=== PATIENT | female | born 2000 | race Caucasian/White ===

== ENCOUNTER → 2022-06-16 22:47 | Observation (INO) ==
[2022-06-16 22:19] LABS: Protein/Creatinine Ratio,Urine 0.64 mg/mg (0.00-0.20)
== END | disposition home or self-care (01) ==
LOC: 1NENULAB
PROVIDERS: ADMIT Obstetrics & Gynecology; ATTEND Obstetrics & Gynecology

== ENCOUNTER 2022-06-17 19:27 | Inpatient (IN) ==
[~2022-06-17 19:27] MED LIST: *HR* Nalbuphine 10 MG/ML AMPUL IV PRN; Azithromycin 500 MG in 0.9 % Sodium Chloride 250 ML IVPB PRN; Famotidine 20 MG/2 ML VIAL IVP PRN; Lidocaine 1% 20 ML MDV INFILT PRN; Metoclopramide 10 MG/2 ML VIAL IVP PRN; Naloxone 0.4 MG/ML INJ IVP PRN; Ondansetron 4 MG/2 ML VIAL IVP PRN
[2022-06-17] MEDS ORDERED: miSOPROStoL 25 MCG TABLET PO PRN (19:30)
[2022-06-17] MEDS ORDERED: Oxytocin 30 UNIT/503 ML BAG IVC SCH (19:30)
[2022-06-17 19:44] LABS: Candida DNA DETECTED (Not Detect); Gardnerella DNA DETECTED (Not Detect); Trichomonas DNA Not Detected (Not Detect)
[2022-06-17] MEDS ORDERED: Fluconazole 150 MG TABLET PO ONE (19:52)
[2022-06-17 20:40] LABS: Basophils # 0.1 K/mcL (0.0-0.2); Basophils % 0.6 %; Eosinophils # 0.2 K/mcL (0.0-0.6); Eosinophils % 1.7 %; Hematocrit 30.1 % (35.3-44.9); Hemoglobin 9.5 g/dL (11.5-15.4); Immature Granulocytes % 1.1 % (0-4); Lymphocytes # 3.4 K/mcL (0.6-4.6); Lymphocytes % 26.8 %; Mean Corpuscular HGB Conc 31.6 g/dL (31.6-35.5); Mean Corpuscular Hemoglobin 24.5 pg (28.0-33.3); Mean Corpuscular Volume 77.6 fL (83.0-100.0); Mean Platelet Volume 10.9 fL (9.4-12.4); Monocytes # 0.6 K/mcL (0.0-1.3); Monocytes % 4.5 %; Neutrophils # 8.3 K/mcL (1.6-8.9); Platelet Count 218 K/mcL (140-400); Red Blood Count 3.88 M/mcL (3.82-4.97); Red Cell Distribution Width 14.8 % (11.5-14.5); Segmented Neutrophils % 65.3 %; White Blood Count 12.7 K/mcL (4.3-11.1)
[2022-06-17] MEDS ORDERED: Famotidine 20 MG/2 ML VIAL IVP ONE (20:48)
[2022-06-17 20:49] LABS: Amphetamine Screen,Urine Negative ng/mL (Cutoff=1000); Barbiturate Screen,Urine Negative ng/mL (Cutoff=200); Benzodiazepines Screen,Urine Negative ng/mL (Cutoff=200); Cannabinoid Screen,Urine Negative ng/mL (Cutoff = 50); Cocaine Screen,Urine Negative ng/mL (Cutoff= 300); Creatinine,Urine 34 mg/dL; Opiate Screen,Urine Negative ng/mL (Cutoff=300); Phencyclidine Screen,Urine Negative ng/mL (Cutoff=25); Protein/Creatinine Ratio,Urine 0.56 mg/mg (0.00-0.20)
[2022-06-17 21:00] LABS: Alanine Aminotransferase 18 Units/L (7-52); Aspartate Amino Transferase 17 Units/L (13-39); BUN/Creatinine Ratio 11 (6-26); Blood Urea Nitrogen 10 mg/dL (6-20); Lactate Dehydrogenase 180 Units/L (140-271); Uric Acid 5.1 mg/dL (2.3-7.6)
[2022-06-17] MEDS ORDERED: metroNIDAZOLE 500 MG TABLET PO SCH (21:00)
[2022-06-17 21:25] LABS: Bilirubin,Urine Negative (Negative); Blood,Urine Trace (Negative); Clarity,Urine Cloudy (Clear); Color,Urine Light-Yellow (Yellow); Glucose,Urine (UA) Normal (Normal); Ketones,Urine Negative (Negative); PH,Urine 6.5 pH Units (5.0-8.0); Specific Gravity,Urine 1.007 (1.010-1.025)
[2022-06-17 21:26] LABS: Leukocyte Esterase,Urine Large (Negative); Nitrite,Urine Negative (Negative); Protein,Urine Trace mg/dL (Neg-Trace); Urobilinogen,Urine Normal (Normal)
[2022-06-17 21:27] LABS: Bacteria,Urine Few per hpf (None-Few); RBC,Urine 15-30 per hpf (0-3); Squamous Epithelial Cell,Urine Few per hpf (None-Few); WBC,Urine 50-100 per hpf (0-3)
[2022-06-17] MEDS: Ringers Solution, Lactated 1,000 ML IVC SCH ×3 (21:27→23:30)
[2022-06-17] MEDS ORDERED: Epidural Premix (fent/bupiv) 110 ML EP SCH (23:45)
[2022-06-17] MEDS ORDERED: EPHEDrine 50 MG/ML VIAL IVP PRN (23:46)
[2022-06-17] MEDS ORDERED: Ropivacaine/PF 0.2% 20 ML VIAL EP ONE (23:46)
[2022-06-17] MEDS ORDERED: *HR* FentaNYL (PF) 100 MCG/2 ML VIAL EP ONE (23:46)
[2022-06-17] MEDS ORDERED: Epidural Premix (fent/bupiv) 110 ML EP ONE (23:51)
[2022-06-18] MEDS ORDERED: Oxytocin 30 UNIT/503 ML BAG IVC ONE ×2 (06:11→20:29)
[2022-06-18] MEDS: Ringers Solution, Lactated 1,000 ML IVC SCH (10:27)
[2022-06-18] MEDS ORDERED: 0.9 % Sodium Chloride 1,000 ML ONE (11:01)
[2022-06-18] MEDS ORDERED: Ropivacaine/PF 0.5% 30 ML VIAL ONE (14:12)
[2022-06-18] MEDS ORDERED: Ropivacaine/PF 0.2% 20 ML VIAL ONE (14:12)
[2022-06-18] MEDS ORDERED: *HR* Phenylephrine 10 MG/ML VIAL ONE (14:14)
[2022-06-18] MEDS ORDERED: Lidocaine/EPI 1:200k 2% PF 20 ML VIAL ONE (14:27)
[2022-06-18] MEDS ORDERED: Sodium Bicarbonate 50 MEQ/50 ML VIAL ONE (14:27)
[2022-06-18] MEDS ORDERED: *HR* FentaNYL (PF) 100 MCG/2 ML VIAL ONE (14:28)
[2022-06-18] MEDS ORDERED: Ketorolac 30 MG/ML VIAL ONE (14:39)
[2022-06-18] MEDS ORDERED: *HR* Oxytocin 10 UNIT/ML VIAL ONE (14:39)
[2022-06-18] MEDS ORDERED: *HR* Labetalol 20 MG/4 ML SYRINGE IVP ONE (15:08)
[2022-06-18] MEDS ORDERED: Ondansetron 4 MG/2 ML VIAL ONE (15:20)
[2022-06-18] MEDS ORDERED: *HR* Morphine Sulfate/PF 10 MG/10 ML AMPUL ONE (15:22)
[2022-06-18] MEDS ORDERED: Simethicone 80 MG TAB.CHEW PO PRN (20:46)
[2022-06-18] MEDS ORDERED: Metoclopramide 10 MG/2 ML VIAL IVP PRN (20:46)
[2022-06-18] MEDS ORDERED: Rho Immune Globulin 1,500 UNIT SYRINGE IM ONE (20:46)
[2022-06-18] MEDS ORDERED: Ringers Solution, Lactated 1,000 ML IVC SCH (20:46)
[2022-06-18] MEDS ORDERED: Ondansetron 4 MG/2 ML VIAL IVP PRN (20:46)
[2022-06-18] MEDS: Ibuprofen 600 MG TABLET PO SCH (23:34)
[2022-06-18] MEDS: cephALEXin 500 MG CAPSULE PO SCH (23:35)
[2022-06-18] MEDS: metroNIDAZOLE 500 MG TABLET PO SCH (23:35)
[2022-06-18] MEDS: Acetaminophen 325 MG TABLET PO SCH (23:35)
[2022-06-19 04:16] LABS: Basophils % 0.2 %; Hemoglobin 8.4 g/dL (11.5-15.4)
[2022-06-19 04:18] LABS: Basophils # 0.1 K/mcL (0.0-0.2); Hematocrit 27.1 % (35.3-44.9); Immature Granulocytes % 0.8 % (0-4); Lymphocytes # 1.8 K/mcL (0.6-4.6); Lymphocytes % 6.4 %; Mean Corpuscular Hemoglobin 24.4 pg (28.0-33.3); Mean Corpuscular Volume 78.8 fL (83.0-100.0); Mean Platelet Volume 10.6 fL (9.4-12.4); Monocytes # 0.9 K/mcL (0.0-1.3); Monocytes % 3.3 %; Neutrophils # 24.9 K/mcL (1.6-8.9); Platelet Count 215 K/mcL (140-400); Red Blood Count 3.44 M/mcL (3.82-4.97); Red Cell Distribution Width 15.1 % (11.5-14.5); Segmented Neutrophils % 89.3 %; White Blood Count 27.9 K/mcL (4.3-11.1)
[2022-06-19 04:54] LABS: Platelet Estimate Normal (Normal)
[2022-06-19] MEDS: Acetaminophen 325 MG TABLET PO SCH ×3 (08:00→23:09)
[2022-06-19] MEDS: metroNIDAZOLE 500 MG TABLET PO SCH ×3 (08:00→21:10)
[2022-06-19] MEDS: cephALEXin 500 MG CAPSULE PO SCH ×3 (08:00→21:11)
[2022-06-19] MEDS: Prenatal Vit/FA 1 EACH TABLET PO SCH (08:00)
[2022-06-19] MEDS: Fluconazole 150 MG TABLET PO SCH (08:01)
[2022-06-19] MEDS: Ibuprofen 600 MG TABLET PO SCH ×3 (08:02→21:11)
[2022-06-19 22:55] VITALS: O2SAT 97
[2022-06-20] MEDS: *HR* OxyCODONE Immed Rel 5 MG TABLET PO PRN ×2 (00:16→08:13)
[2022-06-20 04:35] LABS: Basophils # 0.1 K/mcL (0.0-0.2); Basophils % 0.3 %; Eosinophils # 0.2 K/mcL (0.0-0.6); Eosinophils % 0.7 %; Hematocrit 24.4 % (35.3-44.9); Hemoglobin 7.7 g/dL (11.5-15.4); Immature Granulocytes % 1.1 % (0-4); Lymphocytes # 3.8 K/mcL (0.6-4.6); Lymphocytes % 16.8 %; Mean Corpuscular HGB Conc 31.6 g/dL (31.6-35.5); Mean Corpuscular Hemoglobin 24.6 pg (28.0-33.3); Monocytes # 0.8 K/mcL (0.0-1.3); Monocytes % 3.4 %; Neutrophils # 17.4 K/mcL (1.6-8.9); Platelet Count 222 K/mcL (140-400); Red Blood Count 3.13 M/mcL (3.82-4.97); Red Cell Distribution Width 15.2 % (11.5-14.5); Segmented Neutrophils % 77.7 %; White Blood Count 22.3 K/mcL (4.3-11.1)
[2022-06-20] MEDS: Ibuprofen 600 MG TABLET PO SCH ×2 (05:45→08:26)
[2022-06-20] MEDS: Acetaminophen 325 MG TABLET PO SCH ×2 (05:45→08:26)
[2022-06-20 06:43] VITALS: BP 115/74; PULSE 93; TEMP 98.2
[2022-06-20] MEDS: metroNIDAZOLE 500 MG TABLET PO SCH (08:11)
[2022-06-20] MEDS: cephALEXin 500 MG CAPSULE PO SCH (08:12)
[2022-06-20] MEDS: Prenatal Vit/FA 1 EACH TABLET PO SCH (08:12)
[2022-06-20] MEDS: Fluconazole 150 MG TABLET PO SCH (08:12)
== END 2022-06-20 11:55 | disposition home or self-care (01) | DRG 787 ==
LOC: 1NENULAB → 1NENUOBS 06-18 18:37
PROVIDERS: ADMIT Registered Nurse; ATTEND Registered Nurse